=== PATIENT | male | born 1975 | race Asian ===

== ENCOUNTER 2016-05-15 11:36 | Emergency (ER) | payer OTHER ==
[~2016-05-15] VITALS: Ht 175.3 cm; Wt 72.6 kg
[2016-05-15 11:54] VITALS: BP 116/74
[2016-05-15] MEDS ORDERED: TETANUS-DIPTH-ACEL PERTUSSIS 0.5ML SYRG IM ONE (13:30)
[2016-05-15 16:07] LABS: Hepatitis B Surface Antibody Positive
== END 2016-05-15 14:13 | disposition home or self-care (01) ==
LOC: ER 11:36
DX: S61.231A Puncture wound without foreign body of left index finger without damage to nail, initial encounter (principal); W46.1XXA Contact with contaminated hypodermic needle, initial encounter; Y93.89 Activity, other specified; Y99.0 Civilian activity done for income or pay; Y92.148 Other place in prison as the place of occurrence of the external cause
CPT/HCPCS: 36415; 86703; 86706; 86803; 87340; 90471; 90715